=== PATIENT | male | born 1990 | race Caucasian/White ===

== ENCOUNTER 2025-03-11 08:57 | Outpatient (CLI) | payer OTHER, SELFPAY ==
--- OUTSIDE RECORDS SUMMARY | 2025-03-11 07:13 | XMS_ITS ---
Author Name [facility] Organization [facility] [place] Address [address] [place] [id number] Support Name Relationship Address Phone JACKIE WOMACK Next of Kin [address] [place] [address] JACKIE WOMACK Emergency Contact [address] [place] [address] Insurance Providers: All historical and current Section Date Range: From patient's date of to the date document was created. This section includes the names of all active insurance providers for the patient. Insurance Provider Type of Coverage Plan Name Start of Policy Coverage End of Policy Coverage Group Number Member ID Insurance Provider's Telephone Number Policy Trevino's Name Patient's Relationship to Policy Trevino DO NOT USE-SHILPA DICKERSON Aug 18, 2012 RICARDO Alejandro [id number] [facility] PATIENT Selected Encounter This section includes the information on record at [place] for the Encounter. Date/Time Encounter Type Encounter Description Reason Pro vider Source Mar 11, 2025 11:13 AM Outpatient Encounter [facility] Encounter Template Text not used by [place] Social History: Smoking Status (Most current) and Tobacco Use (All prior to encounter date) This section includes the most current, and the historical, smoking and tobacco- related health factors from the [place] facility where the Encounter took place. Current Smoking Status This section includes the most current smoking, or tobacco-related health factor, from the [place] facility where the Encounter took place. Date/Time Current Smoking Status Comment Facility Sep 19, 2014 10:56 AM CURRENT SMOKER chew tobacco (1 pinch) once a day, on and off. [facility] Tobacco Use History This section includes a history of the smoking, or tobacco-related health factors, that were collected on or before the date of the Encounter. The data comes from the [place] facility where the Encounter took place. Date/Time Smoking Status/Tobac co Use Comment Facility Sep 19, 2014 10:56 AM V1-PT DECLINES [facility] Sep 19, 2014 10:56 AM V1-PT DECLINES TOBACCO CESSATION MEDS [facility] Sep 19, 2014 10:56 AM V1-PT NOT INTERESTED IN QUIT TOBACCO USE [facility] Sep 16, 2014 07:27 PM QUIT TOBACCO USE > 7 YEARS AGO NON-SMOKER OCCASIONAL CHEWING TOBACCO ONLY [facility] Advance Directives: All historical and current Section Date Range: From patient's date of to the date document was created. This section includes ALL of a patient's completed or amended [place] Advance and Rescinded Directives. The entries below indicate that a directive exists for the patient, but an actual copy is not included with this document. The data comes from all [facility]. Date Advance Directives Provider Source Sep 16, 2014 ADVANCE DIRECTIVE DISCUSSION ANGELITA WHITE [facility] Encounter Notes: All associated encounter notes This section contains the clinical notes associated to the Encounter. Date/Time Encounter Note(s) Provider Source Mar 11, 2025 11:13 AM MENTAL HEALTH NOTE : LOCAL TITLE: [facility] NEEDS ASSESSMENT AND INTERVENTION PLAN STANDARD TITLE: MENTAL HEALTH NOTE DATE OF NOTE: MAR 11, 2025@11:13 ENTRY DATE: MAR 11, 2025@11:13:50 AUTHOR: BEATA FLEMING EXP COSIGNER: URGENCY: STATUS: COMPLETED Unassignment The [facility] no longer requires an MHTC assignment. The [facility] is being unassigned from: MHTC: MH Treatment Team: LUAN DE LA GARZA MH Clam Digger: GIOVANNI SANTANA Office Phone: Analog Pager: Digital Pager: The unassignment of the MHTC was discussed with the , who verbally concurred with the unassignment. Information on next steps in the 's care was provided to the . is being unassigned from an MHTC due to the following reason: prefers the MHTC/BHIP to be unassigned. /jessee/ BEATA FLEMING RN REGISTERED NURSE Signed: 03/11/2025 11:14 BEATA FLEMING [facility]
[2025-03-11 13:23] LABS: Basophils % 0.7 % (0.1-2.0); Eosinophils # 0.1 Kmm3 (0.0-0.4); Eosinophils % 1.2 % (0.1-12.0); Hematocrit 47.1 % (42.0-52.0); Hemoglobin 15.9 g/dL (14.1-18.0); Immature Granulocytes # 0.01 10^3uL; Immature Granulocytes % 0.2 %; Lymphocytes # 2.2 K/mm3 (0.7-4.5); Lymphocytes % 36.9 % (10-50); Mean Corpuscular HGB Conc 33.8 g/dL (31.8-35.4); Mean Corpuscular Hemoglobin 29.9 pg (27.0-31.2); Mean Corpuscular Volume 88.5 fl (80-94); Mean Platelet Volume 10.4 fl (7.4-10.4); Monocytes # 0.6 K/mm3 (0.1-1.0); Monocytes % 9.6 % (1.7-9.3); Neutrophils # 3.1 K/mm3 (1.8-7.8); Neutrophils % 51.4 % (37.0-80.0); Nucleated Red Blood Cells # 0 10^3/uL; Nucleated Red Blood Cells % 0 %; Platelet Count 240 K/mm3 (142-424); Red Blood Count 5.32 M/mm3 (4.60-6.20); Red Cell Distribution Width-SD 42.2 fL
[2025-03-11 13:56] LABS: Albumin Level 4.9 g/dl (3.5-5.0); Chloride 105 mmol/L (98-107); Potassium 4.9 mmoL/L (3.5-5.1); Sodium 139 mmol/L (136-145)
[2025-03-11 13:59] LABS: Alanine Aminotransferase 27 U/L (12-78); Alkaline Phosphatase 57 U/L (38-126); Anion Gap 8.9 mEq/L (5-15); Aspartate Amino Transferase 29 U/L (17-59); Bilirubin,Total 0.9 mg/dl (0.2-1.3); Blood Urea Nitrogen 16 mg/dl (9-20); Carbon Dioxide 30 mmol/L (22.0-30.0); Cholesterol 221 mg/dl (140-200); Estimated Glomerular Filt Rate 85 ml/min (>60); GFR (African American) 103 ML/MIN (>60); Globulin 2.4 g/dL (1.3-3.2); Total Protein,Serum 7.3 g/dl (6.3-8.2); Triglycerides 165 mg/dl (30-150); VLDL Cholesterol 33 mg/dL (0-40)
[2025-03-11 14:00] LABS: Calcium 9.5 mg/dl (8.4-10.2); Chol/HDL Ratio 4.9 (1-3.5); Glucose 80 mg/dl (74-100); HDL Cholesterol 45 mg/dl (40-60)
[2025-03-11 14:11] LABS: Direct LDL Cholesterol 123.09 mg/dL (100-129)
[2025-03-11 14:19] LABS: Free T4 (Free Thyroxine) 1.29 ng/dl (0.78-2.19)
[2025-03-11 14:33] LABS: Thyroid Stimulating Hormone 1.12 uIU/mL (0.465-4.68)
[2025-03-11 14:51] LABS: Hepatitis C Ab Qual. W/ RFX NEGATIVE (Negative)
[2025-03-11 14:57] LABS: HIV Combo NEGATIVE (Negative)
[2025-03-12 07:16] LABS: Testosterone,Total 625 ng/dL (264-916)
--- OUTSIDE RECORDS SUMMARY | 2025-03-14 11:20 | XMS_ITS | Continuity of Care Document ---
Author Name [facility] Organization [facility] Care Team Providers Care Food Editor Name Role Phone [facility] Unavailable Unavailable Problems Combined list of problems from Department of Defense and [facility] Affairs facilities. It does not include entries that were removed or entered in error. Problem Status Onset Date Problem Type Date of Resolution Comments Source Adjustment Disorder Active Condition [place] Donnie [facility] Alcohol-Related Disorder NOS Active Condition [facility] Anxiety Disorder Active Condition [facility] Back pain Active Condition [facility] Depression Active Condition [facility] LYNN [facility] Diarrhea Active Condition [facility]ELIX CDonnie [facility] Gastroesophageal reflux disease Active Condition FELIX Garnett ORK [facility] h/o Inflammatory Bowel Disease Active Condition Oct 15, 2011 Entered By: MELISSA LILLY Comment: clem eisenbergt, had colitis with blood in stool after [employer] deploym [facility] h/o Inflammatory Bowel Disease Active Condition Dec 24, 2011 Entered By: MELISSA LILLY Comment: clem cesar, had colitis with blood in stool after [employer] deploym [facility] Headaches Active Condition [facility] BAKER K [facility] Insomnia [facility] Irritable Bowel Syndrome Active Condition [facility] Low Back Pain,Chronic Active Condition [facility] F[place]ONR [facility] Migraine, unspecified, without mention of Intractable Migraine without mention o Active Condition [facility] Muscle Spasm (ICD-9-CM 728.85) Active Condition FELIX Marianne Fields [facility] Nightmares (ICD-9-CM 307.47) Active Condition FELIX C Donnie [facility] Posttraumatic Stress Disorder Active Condition [facility] PTSD * (ICD-9-CM 309.81) Active Condition [facility] Tinnitus Active Condition [facility]IX CDonnie [facility] Tobacco Abuse Active Condition [facility]IX LOPEZ [facility] 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 [facility] GASTRITIS Inactive Condition DoD nausea Inactive Condition DoD PSYCHIATRIC DIAGNOSIS OR CONDITION DEFERRED ON AXIS III Active Condition DoD CONCUSSION Inactive Condition DoD ESOPHAGITIS CHRONIC REFLUX Active Condition DoD PROCTITIS Active Condition DoD Vaccines Prophylactic Need Against Influenza Inactive Condition DoD Administrative Evaluation Services Active Condition DoD SOMATIC DYSFUNCTION OF HEAD Active Condition DoD SOMATIC DYSFUNCTION OF CERVICAL REGION Active Condition DoD SOMATIC DYSFUNCTION OF RIB CAGE Active Condition DoD SOMATIC DYSFUNCTION OF THORACIC REGION Active Condition DoD visit for: physical medical evaluation board (MEB) Active Condition DoD CONSTIPATION Inactive Condition DoD IRRITABLE BOWEL SYNDROME Active Condition DoD ASSESSMENT OF PATIENT CONDITION WORK STATUS Active Condition DoD REACTION TO CHRONIC STRESS Active Condition DoD ANXIETY DISORDER NOS Active Condition DoD OPEN WOUND OF UPPER ARM RIGHT Inactive Condition DoD ADJUSTMENT DISORDER WITH ANXIETY AND DEPRESSED MOOD Active Condition DoD HEARING LOSS Active Condition DoD ADJUSTMENT DISORDER WITH ANXIETY Active Condition DoD lightheadedness Inactive Condition DoD COMMON MIGRAINE (WITHOUT AURA) Active Condition DoD TYMPANIC MEMBRANE PERFORATION CENTRAL Active Condition DoD MIGRAINE HEADACHE Active Condition DoD HEADACHE SYNDROMES Active Condition DoD INFECTIOUS DIARRHEA Inactive Condition D oD visit for: screening exam pulmonary tuberculosis Active Condition DoD ADJUSTMENT DISORDER Active Condition Do D CONDITIONS INFLUENCING HEALTH STATUS Active Condition DoD tobacco use Active Condition DoD AXIS V GLOBAL ASSESS OF FUNCTIONING (GAF) SCALE ___ (100-0) Active Condition DoD AXIS IV PSYCHOSOCIAL AND ENVIRONMENTAL PROBLEMS Inactive Condition DoD NO PSYCHIATRIC DIAGNOSIS ON AXIS III Active Condition DoD NO PSYCHIATRIC DIAGNOSIS ON AXIS II Active Condition DoD NO PSYCHIATRIC DIAGNOSIS OR CONDITION ON AXIS I Active Condition DoD visit for: screening mental / developmental disorders Active Condition DoD heartburn Active Condition DoD abdominal pain Active Condition DoD headache Inactive Condition DoD visit for: issue repeat prescription for medication Inactive Condition DoD Need For Prophylactic Measure Inactive Condition DoD NORMAL PRE-EMPLOYMENT SCREENING EXAMINATION Active Condition DoD visit for: preoperative gastrointestinal exam Inactive Condition DoD COMMON COLD Inactive Condition DoD diarrhea Active Condition DoD CLOSED FX OF NAVICULAR BONE RIGHT FOOT STRESS FRACTURE Active Condition DoD Aftercare Orthopedic Active Condition DoD ankle joint pain Active Condition DoD INJURY OF LOWER EXTREMITY ANKLE Inactive Condition DoD visit for: screening exam depression Inactive Condition DoD Pain / Temp Decrease Leg / Foot Active Condition DoD OVEREXERTION / STRENUOUS MOVEMENT Active Condition DoD FOOT SPRAIN Inactive Condition DoD ANKLE SPRAIN Inactive Condition DoD visit for: administrative purpose Inactive Condition DoD visit for: services physical Active Condition DoD Need For Vaccination Hepatitis A Active Condition DoD Need For Vaccination Typhoid Active Condition DoD ASSESSMENT OF PATIENT CONDITION WORK-RELATED Active Condition DoD NORMAL EXAMINATION Active Condition DoD visit for: screening exam Inactive Condition DoD visit for: examination of subpopulation Active Condition DoD allergy to drugs Inactive Condition DoD visit for: ears / hearing exam Active Condition DoD Patient Education - Injury Prevention Active Condition DoD ASSESS PATIENT CONDITION WORK-RELATED OCCUPATIONAL DISEASE Active Condition DoD Allergies, Adverse Reactions, Alerts Combined list of allergies from Department of Defense and Veterans Affairs facilities. It does not include entries that were removed or entered in error. Substance Category Reaction Severity Reaction type Status Date Reported Comments Source CECLOR Propensity to adverse reactions to drug (finding) Joint pain active 2 [facility] CECLOR Propensity to adverse reactions to drug (finding) active 2 [facility] Cephalospori ns Drug allergy (disorder) Anaphylaxis active 8 Gen Maximiliano Wood [place], [place] PENICILLIN Propensity to adverse reactions to drug (finding) Joint swelling [facility] PENICILLIN Propensity to adverse reactions to drug (finding) active 2 [facility] PENICILLIN-G RELATED PENICILLINS Drug allergy (disorder) active 2 [facility] Penicillins Drug allergy (disorder) Unknown active 8 Gen Maximiliano Wood [facility] [place], [place] TRAZODONE Propensity to adverse reactions to drug (finding) Anxiety active 3 [facility] Immunizations Combined list of available immunizations from the Department of Defense and Veterans Affairs facilities. Immunization Series Date Given Administered By Site Reaction Lot Number CVX Code Drug Instrument Shop Supervisor Status Comments Source influenza, injectable, quadrivalent, preservative free 2019 PADMINI, () Not Given influenza , injectabl e, quadrival ent, preservat freida free [facility] influenza, injectable, quadrivalent, preservative free 2015 NAZAROV, () Not Given influenza , injectabl e, quadrival ent, preservat freida free [facility] FLU,3 YRS (HISTORICAL) 2014 88 complet ed Site: Left Deltoid [facility]IS CARLI [facility] INFLUENZA, SEASONAL, INJECTABLE, PRESERVATIVE FREE 2011 140 complet ed [facility] FLU,3 YRS (HISTORICAL) 2011 88 complet ed [facility] INFLUENZA, HIGH DOSE SEASONAL 2011 135 complet ed [facility] influenza virus vaccine, live, attenuated, for intranasal use 1 2009 PIPER PATE [id number] [employer] (MED) complet influenza virus vaccine, live, attenuate d, for intranasa l use DoD tuberculin skin test; purified protein derivative solution, intradermal 1 2009 Unknown, Provider [id number] Transcribed (TRS) complet ed tuberculi n skin test; purified protein derivativ e solution, intraderm al [facility] influenza virus vaccine, split virus (incl. purified surface antigen)-reti red CODE 1 2009 [id number] 15 [employer] Juliet. (NOV) complet ed influenza virus vaccine, split virus (incl. purified surface antigen)- retired CODE DoD influenza virus vaccine, split virus (incl. purified surface antigen)-reti red CODE 1 2009 [id number] 1A 15 Unknown (UNK) complet ed influenza virus vaccine, split virus (incl. purified surface antigen)- retired CODE DoD Novel influenza-H1N 1-09, injectable 1 2008 [id number] 127 [employer] Juliet. (NOV) complet ed Novel influenza -[id number], injectabl e DoD anthrax vaccine 2 2008 [id number] [employer] [place] ([facility]) complet ed anthrax vaccine DoD hepatitis A vaccine, adult dosage 3 2008 [id number] 52 [employer] (SKB) complet ed hepatitis A vaccine, adult dosage DoD anthrax vaccine 1 2008 [id number] [employer] [place] ([facility]) complet ed anthrax vaccine DoD hepatitis B vaccine, adult dosage 1 2008 [id number] 43 SmithKline (SKB) complet ed hepatitis B vaccine, adult dosage DoD vaccinia (smallpox) vaccine 1 2008 [id number] 75 Unknown (UNK) complet ed vaccinia (smallpox ) vaccine DoD hepatitis A vaccine, adult dosage 1 2008 Unknown, Provider [id number] [facility] (SKB) complet ed hepatitis A vaccine, adult dosage DoD typhoid Vi capsular polysaccharid e vaccine 1 2008 Unknown, Provider [id number] Merck (MSD) complet ed typhoid Vi capsular polysacch aride vaccine DoD influenza virus vaccine, live, attenuated, for intranasal use 1 2007 [id number] [employer]. (MED) complet ed influenza virus vaccine, live, attenuate d, for intranasa l use DoD measles, mumps and rubella virus vaccine 1 2007 UNK 03 Unknown (UNK) Not Given measles, mumps and rubella virus vaccine DoD varicella virus vaccine 1 2007 UNK 21 Unknown (UNK) Not Given varicella virus vaccine DoD hepatitis B vaccine, adult dosage 1 2007 UNK 43 Unknown (UNK) Not Given hepatitis B vaccine, adult dosage DoD poliovirus vaccine, inactivated 1 2007 [id number] Sanofi Pasteur (PMC) complet ed polioviru s vaccine, inactivat ed DoD hepatitis A vaccine, pediatric/ado lescent dosage, 2 dose schedule 1 2007 [id number] 83 [employer]Kline (SKB) complet ed hepatitis A vaccine, pediatric /adolesce nt dosage, 2 dose schedule DoD meningococcal polysaccharid e (groups A, C, Y and W-135) diphtheria toxoid conjugate vaccine (MCV4P) 1 2007 [id number] Sanofi Pasteur (PMC) complet ed meningoco ccal polysacch aride (groups A, C, Y and W-135) diphtheri a toxoid conjugate vaccine (MCV4P) DoD tetanus toxoid, reduced diphtheria toxoid, and acellular pertu is vaccine, adsorbed 1 2007 [id number] Sanofi Pasteur (PMC) complet ed tetanus toxoid, reduced diphtheri a toxoid, and acellular pertussis vaccine, adsorbed DoD TD(ADULT) UNSPECIFIED FORMULATION 2007 139 complet ed [facility] Encounters Combined list of: 1) Encounters from Department of Veterans Affairs facilities going backup to the last 18 months, not all VA inpatient encounters are included; 2) Encounters from the Department of Defense facilities going backup to 280 months. Location Location Details Encounter Type Encounter Number Reason For Visit Attending Provider ADM Date DC Date Status Disposition Source [facility] Maximiliano [place]ousse[place]) OUTPATIENT [id number] DEWAYNE MON 04/08 Released w/o Limitations [facility] Maximiliano Youssef [facility] [place] Hearing Conserv ation Exam) [facility] Maximiliano Youssef [facility] [place] Optometry ) OUTPATIENT [id number] ALLY CALVIN Bassam. 04/13 Released w/o Limitations [facility] Maximiliano Youssef [facility] [place] Optomet ry) [facility] Maximiliano Youssef [facility] [place](C-TMC Er Module) OUTPATIENT [id number] allergy tags CHAPARRO TAPIA 04/14 Released w/o Limitations [facility] Maximiliano Youssef [facility] [place](C-TM C Er Module) [facility] Maximiliano Youssef [facility] [place]) OUTPATIENT [id number] LOW IRON. ROSARIO CRISTOBAL [place] 06/14 Released w/o Limitations [facility] Maximiliano Youssef [facility] [place] [facility] Maximiliano [facility] [place] Er Module) OUTPATIENT [id number] blood work ROHAN PETIT 06/15 Released w/o Limitations [facility] Maximiliano Youssef [facility] [place]) [place]ear[place] Conserv[place] [facility]) OUTPATIENT [id number] [facility] DIMA DOLAN 09/21 Released w/o Limitations [place]ear [place] Conserv [place] [facility]) [place]) [place]PAT[place] [id number] immuniz ations MARC DEWAYNE Singh 10/04 Released w/o Limitations [place] [facility] [place] OUTPATIENT [id number] HIP A DEWAYNE TRAN 10/17 Released [place]/o Limitations [place]Immuni [place]ations [facility]) OUTPATIENT [id number] inproce ss BERTIN RODRIGUEZ 11/24 Released w/o Limitations [place]Immu nizatio [place] [facility]) [place]Immuni zations [facility]) OUTPATIENT [id number] inproce ss RODRIGUEZ, BERTIN Banegas 11/24 Released w/o Limitations [place](Immu nizatio ns [facility]) [place]) OUTPATIENT [id number] TRANS ARELY CHARLES L 12/08 Released w/o Limitations [place] Hearing Conserv ation) [place] Physical Exam[place] OUTPATIENT [id number] pha part 2 MIKE GERMAN 12/15 Released w/o Limitations [place] Phys[facility] Exam) [place] OUTPATIENT [id number] CHAPINCITO DASILVA 02/05 Released w/o Limitations [place] gency Medicin e) [place]) OUTPATIENT [id number] r ankle pain(er followu p) ELISEO BOWERS H 02/06 Released w/o Limitations [place]) [place]) OUTPATIENT [id number] f/u ELISEO BOWERS H 02/17 Released with Work/Duty Limitations [place]) [place]Physic [place] OUTPATIENT [id number] ANKLE SPRAIN SCHAAP, TIM L 02/21 Released w/o Limitations [place]Phys ical Therapy [place]) OUTPATIENT [id number] update profile KANDIS PABON 02/23 Released with Work/Duty Limitations [place] [facility] [place](Hearin [place] Conservat ion [facility]) OUTPATIENT [id number] in-proc MIGEL Londono 02/23 Released w/o Limitations [place]Hear ing [facility]) [place]Orthop [place]ic[place] OUTPATIENT [id number] short leg cast MELANIE GONZALESALETA Banegas 02/23 Released w/o Limitations [place](Orth opedic[place](Physic [place] Therapy ([place] OUTPATIENT [id number] TIM SANTOS L 02/23 Released w/o Limitations [place]Phys ical Therapy [place]) OUTPAT[place] [id number] Pt needs short leg cast per PT and Dr. Sarmiento . DIANA LYONS 02/23 Released w/o Limitations [place]th [place]edic[place] OUTPAT[place] [id number] broke cast rt foot possibl e replace ment DIANA LYONS 03/07 Released w/o Limitations [place]th opedic[place]thop [place]ic[place] OUTPATIENT [id number] rt foot eval TOSHIA COOPER 03/07 Released w/o Limitations [place]th opedic[place]thop [place]ic[place] OUTPATIENT [id number] f/u 2wks TOSHIA COOPER 03/21 Released w/o Limitations [place](Orth opedic) [place]Physic [place] Therapy [place] OUTPATIENT [id number] FOOT SPRAIN ARMIN COOPER 04/13 Released w/o Limitations [place](Phys ical Therapy [place]Orthop [place]ic[place] OUTPATIENT [id number] f/u 3wks TOSHIA COOPER 04/13 Released w/o Limitations [place]Orth opedic) [facility] Facility OUTPATIENT [id number] 10/24 Released w/o Limitations [facility] OUTPATIENT [id number] 10/26 Released w/o Limitations [facility] OUTPATIENT [id number] 10/28 Released w/o Limitations [facility] OUTPATIENT [id number] 10/30 Released with Work/Duty Limitations [facility] OUTPATIENT [id number] 11/02 Admitted Theater Facilit y [facility](ZZZLS L TBI Screening Neurology ) OUTPATIENT [id number] OIF/OEF concuss ion screen SAPPHIRE VAZQUEZ 11/07 Released w/o Limitations [facility](ZZZ LSL TBI Screeni ng [facility]rol[facility] gy) [facility] Gastroent erology) OUTPATIENT [id number] Hematoc hezia.( oif/oef ) CAROLYNN PUENTES 11/07 Released w/o Limitations [facility](L Gastroe nterolo gy) [facility]uring [facility]) OUTPATIENT [id number] New Patient SUSAN TRUJILLO 11/13 Released w/o Limitations [facility]ua [facility]) [facility] Gastroent erology) OUTPATIENT [id number] f/u CAROLYNN PUENTES 11/14 Released w/o Limitations [facility](LSL Gastroe nterolo gy) [facility] Dwmmc) OUTPATIENT [id number] TRANSFE R FOR CONTINU E CARE MARY DIETRICH 11/15 Released w/o Limitations [facility] Dwc) [place] Primary Care Clinic) OUTPATIENT [id number] intake AUSTIN OWEN 11/17 Released with Work/Duty Limitations [place]([facility]) [place]( Multi-D Team [place] TBI) OUTPATIENT [id number] CATY BOURGEOIS 11/17 Released w/o Limitations [place]( Multi-D Team [place] TBI) [place]([facility] Case Managemen t) OUTPATIENT [id number] Initial Intake SANDOVAL LATHA R 11/17 Released w/o Limitations [place]([facility] Case Managem ent) [place] OUTPATIENT [id number] TK CORMIER 11/17 Released w/o Limitations [place]([facility] gency Medicin e) [place] Immun[place] OUTPATIENT [id number] PPD FILI GARCIA 11/20 Released w/o Limitations [place] Immuniz ation) [place]) OUTPATIENT [id number] dd [id number] GARRICK VIDAL 11/20 Released w/o Limitations [place]) [place]) OUTPATIENT [id number] REQ FOR REF. MALGORZATA VELASQUEZ 12/11 Released w/o Limitations [place]) [place]) OUTPATIENT [id number] needs referra FINA Carter 12/26 Released w/o Limitations [place]) [place]) OUTPATIENT [id number] Assist with referra ls/kaela PECK, PAIGE Schwarz 12/27 Released w/o Limitations [place]) [place](Hearin g Conservat ion [facility]) OUTPATIENT [id number] post OTILIA, ALYCE DALIA 01/01 Released w/o Limitations [place](Hear [place] Conserv ation [facility]) [place]) OUTPATIENT [id number] REFILL MEDS GLENN CARDOSO 01/08 Released w/o Limitations [place]) [place] [facility] OUTPATIENT [id number] hearing IDANE MELCHOR Y 01/08 Released w/o Limitations [place] Hearing Conserv ation) [place] Neurology Clinic) OUTPATIENT [id number] new patient /headac hes DIANA ALBARADO 01/18 Released w/o Limitations [place]([facility] Neurolo gy Clinic) [place]TBI Psycholog y[place] OUTPATIENT [id number] Tannery Gummer CASES, [facility] 01/18 Released w/o Limitations [place](-T BI Psychol ogy) [place]) OUTPATIENT [id number] head ache MARC KEE 01/31 Sick at Home/Quarter s [place]([facility]) [place]([facility]) OUTPATIENT [id number] MEDICAL THREAT DANIEL FRANCO 02/09 Released w/o Limitations [place]) [place]([facility] Neurology Clinic) OUTPATIENT [id number] F/U MRI RESULTS CHAPARRO DELGADO 02/20 Released w/o Limitations [place]([facility] Neurolo gy Clinic) [place](-TBI Psycholog y[place] OUTPATIENT [id number] Tannery Gummer CASES, [facility] 02/20 Released w/o Limitations [place](-T BI Psychol ogy) [place](Otolar yngology) OUTPATIENT [id number] MIGRAIN E HEADACH E ALINE RHODES 02/23 Released w/o Limitations [place](Otol aryngol ogy) [place]([facility]) OUTPATIENT [id number] PROFILE VICKY SALAS 03/06 Released w/o Limitations [place]) [place]) OUTPATIENT [id number] medical threat MARY PULIDO 03/16 Released w/o Limitations [place]) [place]) OUTPATIENT [id number] GARRICK MORAES 03/21 Released w/o Limitations [place]) [place]([facility]/TB I Neurology Clinic) OUTPATIENT [id number] FOLLOW UP CHAPARRO DELGADO 03/22 Released w/o Limitations [place]([facility]/ TBI Neurolo gy Clinic) [place]([facility]) OUTPATIENT [id number] MED BOARD MARC KEE 04/10 Released with Work/Duty Limitations [place]) [place]([facility]/TB I Neurology Clinic) OUTPATIENT [id number] FOLLOW UP CHAPARRO DELGADO 04/11 Released w/o Limitations [place]([facility]/ TBI Neurolo gy Clinic) [place]([facility]) OUTPATIENT [id number] Constip ation/R eally bad stomach pains KENDAL TANNER UD 04/24 Sick at Home/Quarter s [place]am[place] OUTPATIENT [id number] MEB PT I MIKE GERMAN 04/27 Released w/o Limitations [place] Physica l Exam) [place] Conserv[facility] [place]) OUTPATIENT [id number] DIANE Mata 04/27 Released w/o Limitations [place]) [place] [facility]) OUTPATIENT [id number] C/M PATY MOORE 05/07 Released w/o Limitations [place]([facility] [facility] [place]unez [place]([facility]) OUTPATIENT [id number] ALEX JOHNSON R 05/15 Released with Work/Duty Limitations [place]unez [place]([facility]) [place]z [place]([facility]) OUTPATIENT [id number] C/M PATY MOORE 05/30 Released w/o Limitations Hannah [place]unez [place]([facility]) Hannah Nunez [place]([facility] OUTPATIENT [id number] F/U PM CHAPARRO DELGADO 05/30 Released w/o Limitations Hannah Nunez [place]([facility]/ [facility]) [place]unez [place]([facility]) OUTPATIENT [id number] routine visit PATY MOORE 07/03 Released w/o Limitations Hannah Nunez [place]([facility]) Hannah Nunez [place]([facility] OUTPATIENT [id number] FOLLOW UP 5WKS CHAPARRO DELGADO W 07/04 Released w/o Limitations Hannah Nunez [place]([facility]) Hannah Nunez [place]([facility]) TELE CONSULT [id number] Case Managem ent LANDY SUERO 07/04 Hannah Nunez [place]([facility]) Hannah Nunez [place]([facility] OUTPATIENT [id number] Case Managem ent LANDY SUERO 07/05 Released w/o Limitations Hannah Nunez [place]([facility]) Hannah Nunez [place]([facility]) OUTPATIENT [id number] cm f/u PATY MOORE 07/11 Released w/o Limitations Hannah Nunez [place]([facility]) Hannah Nunez [place]([facility]) OUTPATIENT [id number] Flu FILI Ortiz 07/13 Released w/o Limitations Hannah Nunez [place]([facility]) Hannah Nunez [place]([facility]) OUTPATIENT [id number] f/u DIANASULEMA LEAMALICK Delarosa 07/30 Released w/o Limitations Hannah Nunez [place]([facility]) Hannah Nunez [place]([facility]) OUTPATIENT [id number] renew referra l BRITTNI DUFFY 08/13 Released w/o Limitations Hannah Nunez [place]([facility]) Hannah Nunez [place]([facility]) OUTPATIENT [id number] DICTATI ON ALEX DIAZ [place] 08/24 Released with Work/Duty Limitations Hannah Nunez [place]([facility]) Hannah Nunez [place]([facility]) OUTPATIENT [id number] XRAY HEAD ALEXANDRLAMAR 08/27 Released w/o Limitations Hannah [place]unez [place]([facility]) Hannah Nunez [place]([facility]) TELE CONSULT [id number] Results rec'd BRITTNI DUFFY 09/09 Hannah Nunez [place]([facility]) Hannah Nunez [place]([facility]) OUTPATIENT [id number] F/U, NO SHOWED [id number] . THIS WAS NEXT AVAILAB LE. CHAPARRO DELGADO 10/03 Released w/o Limitations Hannah Nunez [place]([facility]) Hannah Nunez [place]([facility]) OUTPATIENT [id number] stomach pn BRITTNI DUFFY 11/16 Sick at Home/Quarter s Hannah Nunez [place]([facility]) Hannah Nunez [place]([facility]) OUTPATIENT [id number] FOLLOW UP 8WKS CHAPARRO DELGADO 11/26 Released w/o Limitations Hannah Nunez [place]([facility]) Hannah Nunez [place]([facility]) TELE CONSULT [id number] RESULT RECEIVE D-BRITTNI ARIAS 11/29 [facility] aHnnah Nunez [place]([facility]) OUTPATIENT [id number] MEB PROFILE REVIEW AND ADJUST ALEX DIAZ 12/13 Released with Work/Duty Limitations Hannah Nunez [place]([facility] Hannah Nunez [place]([facility]) OUTPATIENT [id number] F/U PATY MOORE 02/20 Released w/o Limitations [facility] Outpatient Encounter [id number] 03/11 [facility] Procedures Combined list of: 1) Procedures from Department of Veterans Affairs facilities going back up to thelast 18 months, not all [place] non-surgical procedures are included; 2) All procedures from the Department of Defense facilities. Procedure Procedure Type Code Date Perfomer Comments Sourc e SPECIAL REPORTS SUCH INSURANCE FORMS, MORE THAN THE INFORMATION CONVEYED IN THE USUAL MEDICAL COMMUNICATIONS OR STANDARD REPORTING FORM 010 [facility] UNLISTED SPECIAL SERVICE, PROCEDURE OR REPORT 010 [facility] INFLUENZA VIRUS VACCINE, TRIVALENT, LIVE (LAIV3), FOR INTRANASAL USE 008 [facility] SCREENING TEST OF VISUAL ACUITY, QUANTITATIVE, BILATERAL 008 [facility] BUPRENORPHINE IMPLANT, 74.2 MG 008 [facility] EAR MOLD/INSERT, NOT DISPOSABLE, ANY TYPE 008 [facility] COLLECTION OF VENOUS BLOOD BY VENIPUNCTURE 008 [facility] COORDINATED CARE FEE, MAINTENANCE RATE 011 [facility] PSYCHIATRIC DIAGNOSTIC INTERVIEW EXAMINATION 011 [facility] PSYCHIATRIC EVALUATION OF HOSPITAL RECORDS, OTHER PSYCHIATRIC REPORTS, PSYCHOMETRIC AND/OR PROJECTIVE TESTS, AND OTHER ACCUMULATED DATA FOR MEDICALDIAGNOSTIC PURPOSES 011 [facility] IMMUNIZATION ADMINISTRATION BY INTRANASAL OR ORAL ROUTE; 1 VACCINE (SINGLE OR COMBINATION VACCINE/TOXOID) 010 [facility] OSTEOPATHIC MANIPULATIVE TREATMENT (OMT); 3-4 BODY REGIONS INVOLVED 010 [facility] INDIVIDUAL PSYCHOTHERAPY, INSIGHT ORIENTED, BEHAVIOR MODIFYING AND/OR SUPPORTIVE, IN AN OFFICE OR OUTPATIENT FACILITY, APPROXIMATELY 45 TO 50 MINUTES [id number] WITH THE PATIENT [facility] SCREENING TEST OF VISUAL ACUITY, QUANTITATIVE, BILATERAL DoD GROUP PSYCHOTHERAPY (OTHER THAN OF A MULTIPLE-FAMILY GROUP) DoD INTERACTIVE GROUP PSYCHOTHERAPY DoD INDIVIDUAL PSYCHOTHERAPY, INSIGHT ORIENTED, BEHAVIOR MODIFYING AND/OR SUPPORTIVE, IN AN OFFICE OR OUTPATIENT FACILITY, APPROXIMATELY 45 TO 50 MINUTES [id number] W THE PATIENT; W MED EVAL & MGT SER DoD INDIVIDUAL PSYCHOTHERAPY, INSIGHT ORIENTED, BEHAVIOR MODIFYING AND/OR SUPPORTIVE, IN AN OFFICE OR OUTPATIENT FACILITY, APPROXIMATELY 45 TO 50 MINUTES [id number] WITH THE PATIENT DoD SCREENING TEST OF VISUAL ACUITY, QUANTITATIVE, BILATERAL DoD SIMPLE REPAIR OF SUPERFICIAL WOUNDS OF SCALP, NECK, AXILLAE, EXTERNAL GENITALIA, TRUNK AND/OR EXTREMITIES (INCLUDING HANDS AND FEET); 2.5 CM OR LESS DoD INTERACTIVE GROUP PSYCHOTHERAPY [facility] EDUCATIONAL SUPPLIES, SUCH BOOKS, TAPES, AND PAMPHLETS, FOR THE PATIENT'S EDUCATION AT COST TO PHYSICIAN OR OTHER QUALIFIED HEALTH MANAGED SECURITY SALES CONSULTANT DoD INDIVIDUAL PSYCHOTHERAPY, INSIGHT ORIENTED, BEHAVIOR MODIFYING AND/OR SUPPORTIVE, IN AN OFFICE OR OUTPATIENT FACILITY, APPROXIMATELY 45 TO 50 MINUTES [id number] WITH THE PATIENT DoD INDIVIDUAL PSYCHOTHERAPY, INSIGHT ORIENTED, BEHAVIOR MODIFYING AND/OR SUPPORTIVE, IN AN OFFICE OR OUTPATIENT FACILITY, APPROXIMATELY 45 TO 50 MINUTES [id number] WITH THE PATIENT DoD PSYCHIATRIC DIAGNOSTIC INTERVIEW EXAMINATION DoD INDIVIDUAL PSYCHOTHERAPY, INSIGHT ORIENTED, BEHAVIOR MODIFYING AND/OR SUPPORTIVE, IN AN OFFICE OR OUTPATIENT FACILITY, APPROXIMATELY 45 TO 50 MINUTES [id number] WITH THE PATIENT DoD INTERACTIVE GROUP PSYCHOTHERAPY DoD INTERACTIVE GROUP PSYCHOTHERAPY DoD PSYCHIATRIC DIAGNOSTIC INTERVIEW EXAMINATION DoD COORDINATED CARE FEE, MAINTENANCE RATE DoD COORDINATED CARE FEE, MAINTENANCE RATE [facility] ANALYSIS OF CLINICAL DATA STORED IN COMPUTERS (EG, ECGS, BLOOD PRESSURES, HEMATOLOGIC DATA) [facility] PURE TONE AUDIOMETRY (THRESHOLD); AIR ONLY [facility] CASE MANAGEMENT, EACH 15 MINUTES [facility] INDIVIDUAL PSYCHOTHERAPY, INSIGHT ORIENTED, BEHAVIOR MODIFYING AND/OR SUPPORTIVE, IN AN OFFICE OR OUTPATIENT FACILITY, APPROXIMATELY 45 TO 50 MINUTES [id number] WITH THE PATIENT [facility] SKIN TEST; TUBERCULOSIS, INTRADERMAL [facility] PSYCHIATRIC DIAGNOSTIC INTERVIEW EXAMINATION [facility] PHYSICAL THERAPY RE-EVALUATION [facility] APPLICATION OF SHORT LEG CAST (BELOW KNEE TO TOES); [facility] APPLICATION OF SHORT LEG CAST (BELOW KNEE TO TOES); [facility] PHYSICAL THERAPY RE-EVALUATION [facility] CAST SUPPLIES, SHORT LEG CAST, ADULT (11 YEARS +), FIBERGLASS [facility] AUDIOMETRIC TESTING OF GROUPS [facility] THERAPEUTIC PROCEDURE, 1 OR MORE AREAS, EACH 15 MINUTES; GAIT TRAINING (INCLUDES STAIR CLIMBING) [facility] SCREENING TEST OF VISUAL ACUITY, QUANTITATIVE, BILATERAL [facility] SCREENING TEST OF VISUAL ACUITY, QUANTITATIVE, BILATERAL [facility] COLLECTION OF VENOUS BLOOD BY VENIPUNCTURE 009 [facility] HEPATITIS A VACCINE (HEPA), PEDIATRIC/ADOLESCENT DOSAGE-2 DOSE SCHEDULE, FOR INTRAMUSCULAR USE [facility] TYPHOID VACCINE, ACETONE-KILLED, DRIED (AKD), FOR SUBCUTANEOUS USE (U.S. ) 009 [facility] EAR MOLD/INSERT, NOT DISPOSABLE, ANY TYPE [facility] Coordinated care fee, maintenance rate PATY MOORE [facility] Psychiatric Evaluation Comprehensive Examination Psychiatric Evaluation Comprehensive Examination 48814 011 [facility] Psychiatric Evaluation Review of Records and Reports Psychiatric Evaluation Review of Records and Reports 49852 011 [facility] Immunization Admin By Intranasal / Oral Route One Vaccine Immunization Admin By Intranasal / Oral Route One Vaccine 89090 FILI GARCIA [facility] Influenza Virus Vaccine Live Intranasal FILI GARCIA [facility] Osteopathic Manip Treatment (OMT) 3-4 Body Regions Involved Osteopathic Manip Treatment (OMT) 3-4 Body Regions Involved 09541 010 ALEX DIAZ OMT done. HVLA to thoracic ribs and cervical areas direct and indirect BLT to cranium. Adequate tissue response noted. Patient tolerated procedure well and spontaneously reported significant relief of pain and tension in his thoracic area and neck. [facility] Psychiatric Therapy Individual Approximately 45-50 Minutes Psychiatric Therapy Individual Approximately 45-50 Minutes 97649 010 RIVERAELDA [facility] Screening Test Of Visual Acuity, Quantitative, Bilateral Screening Test Of Visual Acuity, Quantitative, Bilateral 02710 010 MIKE GERMAN [facility] Psychiatric Therapy Group (Interview) Psychiatric Therapy Group (Interview) [phone] MARCO ROGERS [facility] Clinical Social Work Counseling Group Clinical Social Work Counseling Group [phone] DIMA REID [facility] Social Work Individual Outpatient Counseling 45-50 Minutes Social Work Individual Outpatient Counseling 45-50 Minutes 47429 010 DIMA REID [facility] Psychiat Therapy Indiv Appr 45-50 Min W/ Med Eval Managemt Psychiat Therapy Indiv Appr 45-50 Min W/ Med Eval Managemt 94404 010 GARRICK CLEVELAND [facility] Repair Of Superficial Wound Upper Extremities .1 to 2.5 cm Repair Of Superficial Wound Upper Extremities .1 to 2.5 cm 36647 010 GARRICK VIDAL [facility] Clinical Social Work Counseling Group Clinical Social Work Counseling Group [phone] DIMA REID [facility] -Supervised Services Provision Of Educational Supplies -Supervised Services Provision Of Educational Supplies 29455 010 MARY PULIDO [facility] Social Work Individual Outpatient Counseling 45-50 Minutes Social Work Individual Outpatient Counseling 45-50 Minutes 36682 010 DIMA REID [facility] Psychiatric Therapy Individual Approximately 45-50 Minutes Psychiatric Therapy Individual Approximately 45-50 Minutes 24040 010 RICHA ARNETT [facility] Social Work Individual Outpatient Counseling 45-50 Minutes Social Work Individual Outpatient Counseling 45-50 Minutes 78307 010 DIMA REID [facility] Psychiatric Evaluation Comprehensive Examination Psychiatric Evaluation Comprehensive Examination 02609 010 RICHA ARNETT [facility] Clinical Social Work Counseling Group Clinical Social Work Counseling Group 90110 010 DIMA REID [facility] Clinical Social Work Counseling Group Clinical Social Work Counseling Group 48517 010 DIMA REID [facility] Psychiatric Evaluation Comprehensive Examination Psychiatric Evaluation Comprehensive Examination 97416 010 DIMA REID [facility] Coordinated care fee, maintenance rate 010 CASES, ERIC I [facility] Coordinated care fee, maintenance rate 010 CASES, ERCI I [facility] Special Services Analysis Of Computerized Data Special Services Analysis Of Computerized Data 00866 010 DIANE MELCHOR [facility] Audiometry Group Testing Audiometry Group Testing [id number]Supervised Group Educational Services DIANE MELCHOR Dr.-Supervised Services Provision Of Special Supplies -Supervised Services Provision Of Special Supplies 64163 010 DIANE MELCHOR [facility] Ear Protector Attenuation Measurements Ear Protector Attenuation Measurements 68742 010 DIANE MELCHOR [facility] Threshold Audiogram (Pure Tone) Threshold Audiogram (Pure Tone) 52479 010 DIANE MELCHOR [facility] Audiometry Group Testing Audiometry Group Testing 94058 010 [facility] Ear Protector Attenuation Measurements Ear Protector Attenuation Measurements 03324 010 [facility] Threshold Audiogram (Pure Tone) Threshold Audiogram (Pure Tone) 27422 010 [facility] Case Management, each 15 minutes 010 PAIGE FOX [facility] Social Work Individual Outpatient Counseling 45-50 Minutes Social Work Individual Outpatient Counseling 45-50 Minutes 00716 010 KILO DIAZ [facility] Skin Test Anergy Tuberculin Intradermal Skin Test Anergy Tuberculin Intradermal 36432 010 FILI GARCIA [facility] Psychiatric Evaluation Comprehensive Examination Psychiatric Evaluation Comprehensive Examination 19262 010 ANAIS SARMIENTO [facility] Services Special Review / Reporting Of Patient Status Services Special Review / Reporting Of Patient Status 97608 010 CAROLYNN PUENTES 3899 completed. [facility] Coordinated care fee, risk adjusted maintenance, Level [address]Supervised Services Provision Of Educational Supplies -Supervised Services Provision Of Educational Supplies 82580 010 CAROLYNN PUENTES - bowel preparation instructions. [facility] Physical Medicine Physical Therapy Re-Evaluation Physical Medicine Physical Therapy Re-Evaluation 16317 009 ARMIN COOPER [facility] Orthopedic Casting Short Leg Orthopedic Casting Short Leg 33407 009 DIANA LYONS [facility] Cast supplies, short leg cast, adult (11 years +), fibergla 009 ESCOBAR GONZALES [facility] Threshold Audiogram (Pure Tone) Threshold Audiogram (Pure Tone) 81101 009 MIGEL HAYES [facility] Ear mold/insert, not disposable, any type 009 MIGEL HAYES [facility] Ear Protector Attenuation Measurements Ear Protector Attenuation Measurements 64571 009 MIGEL HAYES [facility] Audiometry Group Testing Audiometry Group Testing 47816 009 MIGEL HAYES [facility] Physical Medicine Physical Therapy Re-Evaluation Physical Medicine Physical Therapy Re-Evaluation 13204 009 TIM SANTOS [facility] Orthopedic Casting Short Leg Orthopedic Casting Short Leg 92155 009 DIANA LYONS [facility] Physical Therapy Gait Training Physical Therapy Gait Training 60375 009 TIM SANTOS [facility] Physical Medicine Physical Therapy Evaluation Physical Medicine Physical Therapy Evaluation 82177 009 TIM SANTOS [facility] Screening Test Of Visual Acuity, Quantitative, Bilateral Screening Test Of Visual Acuity, Quantitative, Bilateral 51626 009 MIKE GERMAN [facility] Venipuncture Venipuncture 97426 009 BERTIN RODRIGUEZ [facility] Hep A Vac Ped/Adol Dosage (Intramusc Use) 2 Dose Schedule Hep A Vac Ped/Adol Dosage (Intramusc Use) 2 Dose Schedule 80968 009 DEWAYNE TARN [facility] Immunization Administration One Vaccine Immunization Administration One Vaccine 94027 009 DEWAYNE TRAN [facility] Typhoid Vaccine Acetone-Killed, Dried (U.S. ) Typhoid Vaccine Acetone-Killed, Dried (U.S. ) 76042 009 DEWAYNE TRAN [facility] Immunization Administration One Vaccine Immunization Administration One Vaccine 95596 009 MARC DEWAYNE Singh [facility] Ear mold/insert, not disposable, any type 008 DIMA DOLAN [facility] Screening Test Of Visual Acuity, Quantitative, Bilateral Screening Test Of Visual Acuity, Quantitative, Bilateral 06550 008 ALLY CALVIN [facility] Audiometry Group Testing Audiometry Group Testing 83710 008 DEWAYNE MON [facility] Ear mold/insert, not disposable, any type 008 DEWAYNE MON [facility] Social History Combined list of available smoking, tobacco, and other social history from Department of Defense and Veterans Affairs facilities. Social History Type Response Date Comment Source Tobacco smoking status NHIS CURRENT SMOKER 09/19/2014 chew tobacco (1 pinch) once a day, on and off. [facility] History of tobacco use V1-PT DECLINES TOBACCO CESSATION MEDS 09/19/2014 [facility] History of tobacco use QUIT TOBACCO USE > 7 YEARS AGO 09/16/2014 NON-SMOKER OCCASIONAL CHEWING TOBACCO ONLY [facility] History of tobacco use V9 LIFETIME NON-TOBACCO USER 06/19/2012 [facility] History of tobacco use QUIT TOBACCO USE 1-7 YEARS AGO 12/24/2011 [facility] History of tobacco use HISTORY OF SMOKING 10/15/2011 quit 3 years ago [facility] This section is an empty social history section. [facility] Advance Directives List of completed, amended, or rescinded Advance Directives on record at Department of Veterans Affairs facilities. An actual copy of the Directive is not included. Date Advance Directive Provider Source 09/16/2014 ADVANCE DIRECTIVE DISCUSSION ANGELITA WHITE [facility]
--- OUTSIDE RECORDS SUMMARY | 2025-03-14 12:30 | XMS_ITS | Referral Summary ---
Author Organization [facility] [employer] Address [address] [place] [address] Care Team Providers Care Digitizer Name Role Phone Sherman Vincent MD Primary Care Provider [phone] Allergies Active Allergy Reactions Criticality Noted Date [...] Date Jairo rded Speak language other than Tristanian at home Not on file 05/16/2024 Want [...] Plan of Treatment Not on file Insurance [facility] Care Teams Digitizer Relationship Specialty Start Date End Date Sherman Vincent MD [address] [place] [address] JLILIAN Dasilva [id number] PCP - General Family Medicine 05/20/24
--- OUTSIDE RECORDS SUMMARY | 2025-03-14 12:30 | XMS_ITS | Clinical Summary ---
Author Organization [facility] Address [address] [place] [address] Care Team Providers Care Electric Meter Tester Helper Name Role Phone Sherman Vincent MD Primary Care Provider [phone] Allergies Active Allergy Reactions Criticality Noted Date [...] Date Jairo rded Speak language other than [place] at home Not on file 05/16/2024 Want [...] patient's age to complete this topic Insurance [facility] Care Teams Electric Meter Tester Helper Relationship Specialty Start Date End Date Sherman Vincent MD [address] [place] [address] [place] [address] PCP - General Family Medicine 05/20/24
[2025-03-15 16:12] LABS: Testosterone,Free 8.9 pg/mL (8.7-25.1)
== END 2025-03-11 23:59 | disposition home or self-care (01) ==
LOC: LAB.DROPOF 03-14 12:21
PROVIDERS: PCP Internal Medicine; Visit Provider Internal Medicine
DX: Z00.00 Encounter for general adult medical examination without abnormal findings (principal); Z13.29 Encounter for screening for other suspected endocrine disorder; Z13.220 Encounter for screening for lipoid disorders; Z11.4 Encounter for screening for human immunodeficiency virus [HIV]; Z11.59 Encounter for screening for other viral diseases; Z86.39 Personal history of other endocrine, nutritional and metabolic disease
CPT/HCPCS: 80053; 80061; 84402; 84403; 84439; 84443; 85025; 86803; 87389

== ENCOUNTER 2025-03-14 11:18 | Outpatient (CLI) | payer OTHER, SELFPAY ==
--- NOTE | 2025-03-14 11:00 | US_ITS ---
FINAL REPORT CLINICAL HISTORY: Mass of LUE, possible lipoma FINDINGS: Limited sonographic images at the area of interest in the left upper extremity were obtained. There is an oval, isoechoic mass in the subcutaneous tissues measuring up to 23 mm. The appearance is compatible with a lipoma. No fluid collection is identified. IMPRESSION: Lipoma at the area of interest. Reviewed, Interpreted and Dictated by Courtney Flores MD Transcribed by Opal Quintero Authenticated and [facility]
--- OUTSIDE RECORDS SUMMARY | 2025-03-14 11:34 | XMS_ITS | Clinical Summary ---
Author Organization [facility] [employer] Address [address] [place] [address] Care Team Providers Care Mineralogy Professor Name Role Phone Sherman Vincent MD Primary Care Provider [phone] Allergies Active Allergy Reactions Criticality Noted Date Comments Cefaclor Hives High 05/16/2024 Clindamycin Hives High 05/16/2024 Penicillin Hives High 05/16/2024 Medications No known medications Active Problems No known active problems Social History Tobacco Use Types Packs/Day Years Used Date Smoking Tobacco: Never Smokeless Tobacco: Never Interpersonal Safety Answer Date Record ed Family or friends hurt you Not on file 05/16 Family or friends insult you Not on file Family or friends threaten you Not on file 0 05/16/2024 Family or friends scream or curse at you Not on file 05/16/2024 Food Insecurity Answer Date Recorded Food run out past 12 months Not on file 04/23 Food did not last past 12 months Not on file 05/16/2024 Employment Answer Date Recorded Help finding and keeping a job Not on file 0 05/16/2024 Family and Community Support Answer Jose e Recorded Help with Day to Day Activities Not on file 05/16/2024 Feeling Lonely or Isolated Not on file 05/16 Educational Attainment Answer Date Jairo rded Speak language other than Ghanaian at home Not on file 05/16/2024 Want help with school or training Not on file 05/16/2024 Depression Answer Date Recorded PHQ-2 Risk Not on file 05/16/2024 Disabilities Answer Date Recorded Difficulty concentrating Not on file 024 Difficulty doing errands alone Not on file 0 05/16/2024 Substance Use Answer Date Recorded Used prescription meds for non-medical reasons N ot on file 05/16/2024 Used illegal drugs past 12 months Not on file 05/16/2024 Sex and Gender Information Value Date Recorded Sex Assigned at Not on file Legal Sex Male 9:15 AM CDT Gender Identity Not on file Sexual Orientation Not on file Last Filed Vital Signs Vital Sign Reading Time Taken Comments Blood Pressure 112/70 05/20/2024 2:36 PM EDT Pulse 85 05/20/2024 2:36 PM EDT Temperature 37.3 C (99.1 F) 05/16/2024 10:25 AM EDT Respiratory Rate 16 05/16/2024 10:25 AM EDT Oxygen Saturation 99% 05/20/2024 2:36 PM EDT Inhaled Oxygen Concentration - - Weight 102.1 kg (225 lb) 05/20/2024 2:36 PM EDT Height 190.5 cm (6' 3 ) 05/20/2024 2:36 PM EDT Body Mass Index 28.12 05/20/2024 2:36 PM EDT Plan of Treatment Health Maintenance Due Date Last Done Comments Depression Screening (12+) 2001 HIV Screening 2004 Hepatitis C Screening 2007 DTAP/TDAP/TD VACCINES (1 - Tdap) 2008 COVID-19 VACCINE ( - 2023-2 5 season) 2024 Lipid Panel 2024 Tobacco Cessation Counseling and Screening (12+) 05/20/2025 05/20/2024 Influenza Vaccine (Season Ended) 2025 Pneumococcal Vaccine: 0-49 Years Aged Out No longer eligible based on patient's age to complete this topic Insurance [facility] Care Teams Mineralogy Professor Relationship Specialty Start Date End Date Sherman Vincent MD [address] [place] [address] [place] [address] PCP - General Family Medicine 05/20/24
--- OUTSIDE RECORDS SUMMARY | 2025-03-14 11:34 | XMS_ITS | Referral Summary ---
Author Organization [facility] [employer] Address [address] [place] [address] Care Team Providers Care Supply Chain Buyer Name Role Phone Sherman Vincent MD Primary Care Provider [phone] Allergies Active Allergy Reactions Criticality Noted Date [...] Date Jairo rded Speak language other than Indonesian at home Not on file 05/16/2024 Want [...] 05/20/2024 2:36 PM EDT Plan of Treatment Not on file Insurance [facility] Care Teams Supply Chain Buyer Relationship Specialty Start Date End Date Sherman Vincent MD [address] [place] [address] JILLIAN Dasilva [id number] PCP - General Family Medicine 05/20/24
== END 2025-03-14 23:59 | disposition home or self-care (01) ==
LOC: RAD 11:18
PROVIDERS: PCP Internal Medicine; Visit Provider Internal Medicine
DX: D17.22 Benign lipomatous neoplasm of skin and subcutaneous tissue of left arm (principal)
CPT/HCPCS: 76882

== ENCOUNTER 2025-03-16 08:57 | Outpatient (RCR) | payer OTHER, SELFPAY | END 2025-03-16 23:59 | disposition home or self-care (01) | LOC: PT.CARL 08:57 | PROVIDERS: Visit Provider Internal Medicine | DX: M79.18 Myalgia, other site (principal) | CPT/HCPCS: 97110; 97140; 97161 ==